=== PATIENT | female | born 1975 | race African-American/Black ===

== ENCOUNTER 2017-09-04 17:33 | Emergency (ER) | payer OTHER ==
[~2017-09-04 17:33] MED LIST: MELO15TA2 PO; METH750T2 PO
[2017-09-04 17:38] VITALS: BP 154/74; PULSE 91; RESP 20; TEMP 98.1; O2SAT 98
[2017-09-04] MEDS ORDERED: LORazepam 0.5 MG TAB PO ONE (18:00)
[2017-09-04] MEDS ORDERED: KETOROLAC TROMETHAMINE 60 MG/2 ML (IM) VIAL IM ONE (18:00)
[2017-09-04] MEDS ORDERED: ORPHENADRINE INJ 60 MG/2 ML AMP IM ONE (18:00)
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
[2017-09-04] MEDS ORDERED: ROBA750T PO (18:24)
[2017-09-04] MEDS ORDERED: IBUP1TAB7 PO (18:24)
== END 2017-09-04 18:50 | disposition home or self-care (01) ==
LOC: NEPK 17:33
DX: S16.1XXA Strain of muscle, fascia and tendon at neck level, initial encounter (principal); G44.209 Tension-type headache, unspecified, not intractable; J45.909 Unspecified asthma, uncomplicated; F41.9 Anxiety disorder, unspecified; F43.0 Acute stress reaction; V49.49XA Driver injured in collision with other motor vehicles in traffic accident, initial encounter; Y99.0 Civilian activity done for income or pay
CPT/HCPCS: 96372; 99284; J1885; J2360

== ENCOUNTER 2017-09-08 12:33 | Emergency (ER) | payer SELFPAY ==
[~2017-09-08 12:33] MED LIST changes: +IBUP1TAB7 PO; -MELO15TA2 PO; -METH750T2 PO; +ROBA750T PO
[2017-09-08 12:34] VITALS: BP 127/90; PULSE 100; RESP 15; TEMP 98.6; O2SAT 99
--- NOTE | 2017-09-08 13:13 | PD ---
HPI Chief Complaint: Musculoskeletal Complaint Time Seen by Provider: 13:08 Travel History International Travel<30 days: No Contact w/Intl Traveler<30days: No Traveled to known affect area: No History of Present Illness HPI 42-year-old female presents emergency Department with complaint of right thigh pain and right calf pain after receiving an injection of a muscle relaxer on September 04. Denies paresthesias, loss of sensation, decreased range of motion, decreased strength to the affected extremity. Denies fever, vomiting. Denies history of PE/DVT. Denies anticoagulant therapy. Denies leg edema. Denies chest pain, shortness of breath. That she's limping on the leg secondary to pain. Has been taking ibuprofen for symptom management. Rates pain 03/10. Describes it as a throbbing sensation. Pain is worse with walking and palpation. No known allergies. Dr. Sullivan is primary care provider. Has no other medical complaints. No other modifying factors or associated signs and symptoms. PFSH Past Medical History Asthma: Yes (CHILDHOOD) Anxiety: Yes Diminished Hearing: No Reproductive: Yes (ENDOMETRIOSIS) Immunizations Current: Yes ?: Not LMP: 09/07/17 : 5 Para: 3 Miscarriage: 2 : 2 Ectopic : Yes Tubal Ligation: Yes Past Surgical History Gynecologic Surgery: Yes (LAPAROSCOPY for endometriosis,uterine ablation on 12/02) Other Surgery: Yes (LigatiandonTubal ) Social History Alcohol Use: No Tobacco Use: No Substance Use: No Allergies-Medications (Allergen,Severity, Reaction): Coded Allergies: No Known Allergies (Verified Adverse Reaction, Unknown, 09/08/17) Reported Meds & Prescriptions Reported Meds & Active Scripts Active Ibuprofen 800 Mg Tab 800 Mg PO Q8H PRN Robaxin (Methocarbamol) 750 Mg Tab 750 Mg PO Q8HR Do not drive while using this medication. Review of Systems Except as stated in HPI: all other systems reviewed are Neg Physical Exam Narrative GENERAL: Well-nourished, well-developed black female patient, in no acute distress SKIN: Warm and dry. HEAD: Atraumatic. Normocephalic. EYES: Pupils equal and round. No scleral icterus. No injection or drainage. ENT: Mucosa pink and moist. Airway patent. NECK: Trachea midline. CARDIOVASCULAR: Regular rate. RESPIRATORY: No accessory muscle use. GASTROINTESTINAL: Flat. MUSCULOSKELETAL: Right lower extremity supple and non-tense with 2+ pedal pulse and sensory intact without erythema or edema. Reproducible tenderness on palpation to the posterior upper calf. Producible tenderness to the right anterior thigh area; however erythema, edema, ecchymosis. No obvious deformities. No clubbing. No cyanosis. No edema. NEUROLOGICAL: Awake and alert. Oriented 3. No obvious cranial nerve deficits. Motor grossly within normal limits. Normal speech. PSYCHIATRIC: Appropriate mood and affect; insight and judgment normal. Data Data Last Documented VS Vital Signs Date Time Temp Pulse Resp B/P (MAP) Pulse Ox O2 Delivery O2 Flow Rate FiO2 09/08/17 12:34 98.6 100 15 127/90 (102) 99 Orders Orders Ibuprofen (Motrin) (09/08/17 13:15) Us Leg Venous Doppler (09/08/17 ) [facility] Medical Decision Making Medical Screen Exam Complete: Yes Emergency Medical Condition: Yes Medical Record Reviewed: Yes Differential Diagnosis Thrombosis, leg pain, injection site pain, medical clearance Narrative Course 42-year-old female with right thigh and calf pain after receiving an injection 4 days ago in her right thigh. Right lower extremity supple and nontender 2+ pedal pulses and sensory intact without erythema or edema. There is tenderness on palpation of the posterior calf. I will order an venous Doppler ultrasound to rule out DVT. 1430: Right leg venous upper ultrasound concluded: Negative for deep venous thrombosis. Discussed ultrasound findings with the patient. Ibuprofen prescribed for home. Instructed patient to follow up with primary care provider. Patient verbalizes understanding and agreement with treatment plan. Patient is medically cleared and stable for discharge. Discussed reasons to return to the emergency department. Patient agrees with treatment plan. The patients vital signs are stable and the patient is stable for outpatient follow- up and treatment. Patient discharged home, stable and in no acute distress. Diagnosis Primary Impression: Right leg pain Additional Impression: Pain at injection site Qualified Codes: T80.89XA - Other complications following infusion, transfusion and therapeutic injection, initial encounter; R52 - Pain, unspecified Referrals: Primary Care Physician Patient Instructions: General Instructions, Leg Pain (ED) Additional Instructions: Tylenol or ibuprofen as directed and as needed for pain and inflammation Ice and/or heat to affected area to reduce pain Avoid aggravating activity; increase activity as tolerated Follow-up with primary care provider Return to the emergency department immediately with worsening of symptoms Med/Other Pt SpecificInfo: Prescription(s) given Scripts Ibuprofen (Ibuprofen) 800 Mg Tab 800 MG PO Q6HR Y for PAIN, #20 TAB 0 Refills Prov: Gris Turner 09/08/17 Disposition: 01 DISCHARGE HOME Condition: Stable Gris Turner Sep 08, 2017 13:13
[2017-09-08] MEDS ORDERED: IBUPROFEN 800 MG TAB PO ONE (13:15)
--- NOTE | 2017-09-08 14:24 | RADRPT ---
EXAM DATE/TIME: 09/08/2017 13:26 [place] COMPARISON: No previous studies available for comparison. INDICATIONS : Right leg pain. MEDICAL HISTORY : Endometriosis. SURGICAL HISTORY : Tubal ligation. Laparoscopy for endometriosis. Uterine ablation. ENCOUNTER: Initial ACUITY: 3 days PAIN SCORE: 4/10 LOCATION: Right leg. TECHNIQUE: Venous ultrasound of the leg was performed from the inguinal ligament to the proximal calf. Real-gomez e, color Doppler and spectral tracing, compression and augmentation techniques were used. FINDINGS: There is normal compressibility of the deep venous system from the inguinal region to the proximal ca lf. No echogenic clot is seen in the lumen of the common femoral, femoral, popliteal, and posterior tibial veins. There is a normal response of the venous system to proximal and distal augmentation an d respiration. CONCLUSION: Negative for deep venous thrombosis. Jhonathan Holley MD FACR on September 08, 2017 at 14:21 Board Certified Radiologist. This report was verified electronically.
[2017-09-08] MEDS ORDERED: IBUP1TAB7 PO (14:30)
== END 2017-09-08 15:10 | disposition home or self-care (01) ==
LOC: NEPK 12:33
DX: M79.604 Pain in right leg (principal); T80.89XA Other complications following infusion, transfusion and therapeutic injection, initial encounter; J45.909 Unspecified asthma, uncomplicated; F41.9 Anxiety disorder, unspecified
CPT/HCPCS: 93971

== ENCOUNTER 2018-10-27 05:54 | Observation (INO) ==
[2018-10-27] MEDS ORDERED: ceFAZolin 2 GM IV; once IV.SIG PRN (06:18)
[2018-10-27] MEDS ORDERED: Chlorhexidine Gluconate 2% 1 Pack (2 Cloths) TOPICAL ONE (06:20)
[2018-10-27] MEDS ORDERED: Metoprolol Tartrate 25 MG Tablet PO ONE (06:20)
[2018-10-27] MEDS ORDERED: Sodium Chlor 0.9% Inj 500 ML IV.SIG SCH (07:00)
[2018-10-27 07:04] LABS: Baso % (Auto) 0.5 % (0.0-2.0); Eos # (Auto) 0.1 th/mm3 (0.0-0.4); Hematocrit 39.6 % (35.0-46.0); Hemoglobin 13.3 gm/dL (11.6-15.3); Lymph # (Auto) 2.1 th/mm3 (1.0-4.8); Mean Corpuscular HGB Conc 33.5 % (32.0-36.0); Mean Corpuscular Hemoglobin 27.6 pg (27.0-34.0); Mean Corpuscular Volume 82.4 fL (80.0-100.0); Mean Platelet Volume 8.1 fL (7.0-11.0); Mono # (Auto) 0.5 th/mm3 (0.0-0.9); Mono % (Auto) 10.7 % (0.0-8.0); Neut # (Auto) 2.3 th/mm3 (1.8-7.7); Neut % (Auto) 44.8 % (16.0-70.0); Platelet Count 238 th/mm3 (150-450); Red Cell Distribution Width 14.4 % (11.6-17.2); White Blood Count 5.1 th/mm3 (4.0-11.0)
[2018-10-27] MEDS ORDERED: Lidocaine 1%/Epinephrine 1:100,000 Inj 50 ML Vial ONE (07:25)
[2018-10-27] MEDS ORDERED: Ketorolac Inj 30 MG/ML (IVP) Vial IV.PUSH ONE (08:04)
[2018-10-27] MEDS ORDERED: Phenylephrine/NS 1000 MCG/10ML Syringe IV.PUSH ONE (08:04)
[2018-10-27] MEDS ORDERED: Lidocaine PF 1% Inj 5 ML Syringe OTHER ONE (08:04)
[2018-10-27] MEDS ORDERED: Glycopyrrolate Inj 1 MG/5 ML Syringe IV.PUSH ONE (08:04)
[2018-10-27] MEDS ORDERED: Neostigmine Inj 5 MG/5 ML Syringe IV.PUSH ONE (08:04)
[2018-10-27] MEDS ORDERED: fentaNYL Citrate Inj 100 MCG/2 ML Ampul ONE (09:51)
[2018-10-27] MEDS ORDERED: HYDROmorphone PF Inj 1 MG/ML Ampul IV.PUSH PRN (10:18)
--- NOTE | 2018-10-27 10:18 | P.OP ---
- Preoperative Diagnosis (1) Excessive menses - Postoperative Diagnosis (1) Excessive menses Date of procedure: 10/27/18 Procedure: LASH bilateral salpingectomy Anesthesia: GETA Surgeon: Brian Sebastian MD Automatic Cigar Wrapper Tender: Destiny Barreto Estimated blood loss (mL): 100 Pathology: other (uterus and tubes)
[2018-10-27] MEDS ORDERED: *morphine SULFATE 4 MG/ML PERIprocedure ONLY ONE (10:32)
--- NOTE | 2018-10-27 10:43 | MP ---
cc: Brian Sebastian MD DATE OF OPERATION: 10/27/2018 PROCEDURE: Laparoscopic supracervical hysterectomy with bilateral salpingectomy. PREOPERATIVE DIAGNOSIS: Excessive menses. POSTOPERATIVE DIAGNOSIS: Excessive menses. SURGEON: Brian Sebastian MD. ESTIMATED BLOOD LOSS: 100 mL. PAIRER ODDS: Destiny Honeycutt APRN. COMPLICATIONS: None. FINDINGS: A slightly enlarged boggy uterus, normal fallopian tubes and ovaries bilaterally. No ovarian cysts seen. PROCEDURE IN DETAIL: After informed consent, the patient was taken to the operating room where she was placed under general anesthesia, was placed in supine position, legs in the Yellofin stirrups and perineum and vagina were prepped and draped in normal sterile fashion. After a timeout was taken, a Crockett was placed to gravity and a speculum was placed in the vagina. The cervix was grasped with a single-tooth tenaculum and acorn uterine manipulator was placed in the cervix. Gloves were changed. A 5 mm infraumbilical incision was made through an old scar. We entered the abdomen under direct visualization. Upper and lower abdomen revealed no abnormalities. Uterus was slightly enlarged and boggy. Fallopian tubes were lifted off the ovaries, which were normal. We came underneath the mesosalpinx and removed the fallopian tubes bilaterally. Good vascularity to the ovaries remained. At this point, used the Harmonic scalpel. We came across the round ligament and the uteroovarian ligament, releasing the ovary to the pelvic sidewall. We continued down until a bladder flap was created and then the uterine arteries were taken both sides. We dissected down the cervical branch of the uterine arteries, avoiding injury to the bladder and came across the cervical stump. The acorn uterine manipulator was encountered as we came across the cervix, there was no remaining endometrium. At this point, good hemostasis had been achieved at all pedicles. The uterus was now free in the abdomen. Both fallopian tubes had been removed through the trocar sites. A small incision was made suprapubically just large enough to remove the uterus. The fascia was opened. We entered the peritoneum and the uterus was removed intact. The peritoneum was then closed, the fascia was closed and the skin was closed with subcuticular stitch. The abdomen was reinsufflated. There was no bleeding. All blood and clots were removed from the abdomen. All instruments were removed. The 5 mm trocars, infraumbilical and left and right lower quadrants, were closed with simple stitch. The patient tolerated the procedure well. She was taken to recovery room in stable condition. Lap and instrument counts were correct. MD ADILENE Isaac/elizabeth , 10:23 AM , 10:31 AM
[2018-10-27] MEDS: Ketorolac Inj 30 MG/ML (IVP) Vial IV.PUSH PRN ×2 (12:18→22:30)
[2018-10-28 03:50] VITALS: PULSE 70
[2018-10-28 08:23] VITALS: BP 115/66; RESP 16; TEMP 98.9; O2SAT 95
--- NOTE | 2018-10-28 09:00 | P.PNOB ---
Subjective Post op day: 1 Interval history: doing well, voiding , passing gas and ambulating. Pain controlled with percocet Objective Vital Signs/I&O: Vital Signs 10/27/18 09:45 10/27/18 10:00 10/27/18 10:15 Temperature 97.4 F L Pulse Rate 74 73 67 Respiratory Rate 15 17 15 Blood Pressure 109/57 L 106/60 100/59 L Pulse Oximetry 98 100 100 10/27/18 10:30 10/27/18 10:45 10/27/18 13:16 Temperature 97.3 F L 97.8 F Pulse Rate 74 68 87 Respiratory Rate 16 17 16 Blood Pressure 99/54 L 111/63 121/74 Pulse Oximetry 100 97 95 10/27/18 19:46 10/27/18 23:55 10/28/18 03:49 Temperature 98.6 F 98.4 F 98.1 F Pulse Rate 89 87 70 Respiratory Rate 18 18 18 Blood Pressure 116/65 118/64 106/62 Pulse Oximetry 95 96 97 10/28/18 08:00 Temperature 98.9 F Pulse Rate 70 Respiratory Rate 16 Blood Pressure 115/66 Pulse Oximetry 95 Intake & Output 10/27/18 10/28/18 10/28/18 18:59 06:59 18:59 Intake Total 1450 / 1450 Output Total 1700 / 1700 Balance -250 / -250 Intake: IV 1050 / 1050 LR 1000 mL Inj 1,000 ML @ 30 1000 / 1000 mls/hr IV.SIG .Q24H [facility] Rx#: [id number] Ancef 2 GM Premix Inj 2 gm In 50 / 50 50 ml @ 100 mls/hr IV.SIG UNDERGROUND TRUCK OPERATOR PRN Rx#:[id number] Anesthesia Amount 400 / 400 Output: Urine 1500 / 1500 Estimated Blood Loss 100 / 100 Urine Amount (Catheter) 100 / 100 Indwelling Urethral Catheter 100 / 100 Result Diagrams: 10/27/18 06:45 Objective Remarks: GENERAL: Well-nourished, well-developed patient. ABDOMEN/GI: Abdomen soft, non-tender, bowel sounds present. Incision: Clean, dry and intact. Fundus: Firm, non-tender at umbilicus. GENITOURINARY: Light to moderate bleeding. EXTREMITIES: No cyanosis or edema, non-tender, without signs of DVT. Medications and IVs: Active Medications Hydromorphone HCl (Dilaudid Pf Inj) 1 mg IV.PUSH Q4H PRN PRN Reason: BREAKTHROUGH PAIN Last Admin: 10/27/18 17:26 Dose: 1 mg Sodium Chloride (Ns Inj) 500 mls @ 30 mls/hr IV.SIG .Q10H KADIE Last Admin: 10/27/18 06:55 Dose: Not Given Ketorolac Tromethamine (Toradol Inj) 30 mg IV.PUSH Q6H PRN PRN Reason: ABDOMINAL CRAMPING Stop: 11/01/18 10:17 Last Admin: 10/27/18 22:30 Dose: 30 mg Miscellaneous Information ([facility] Nursing Information) 1 each OTHER UNSCH PRN PRN Reason: SEE LABEL COMMENTS Stop: 10/28/18 09:46 Ondansetron HCl (Zofran Inj) 4 mg IV.PUSH Q6H PRN PRN Reason: NAUSEA OR VOMITING Oxycodone/Acetaminophen (Percocet 5/325 Mg) 1 tab PO Q4H PRN PRN Reason: PAIN SCALE 1 TO 5 Last Admin: 10/28/18 08:13 Dose: 1 tab Oxycodone/Acetaminophen (Percocet 5/325 Mg) 2 tab PO Q4H PRN PRN Reason: PAIN SCALE 6 TO 10 Sodium Chloride (Ns Flush) 2 ml IV.FLUSH PRN PRN PRN Reason: FLUSH AFTER USING IV ACCESS Last Admin: 10/27/18 22:31 Dose: 2 ml Sodium Chloride (Ns Flush) 2 ml IV.FLUSH BID KADIE Last Admin: 10/27/18 22:31 Dose: Not Given Assessment and Plan - Diagnosis (1) Excessive menses Code(s): N92.0 - Excessive and frequent menstruation with regular cycle Status : Acute - Plan de home
--- NOTE | 2018-10-28 09:05 | P.DS ---
Date of admission: 10/27/18 12:11 Primary care physician: No Primary Care Physician Brief History from admission: 43 yo for DUSTIN doing well DS: Diagnosis - Discharge Diagnosis (1) Excessive menses Status: Acute DS: Medications - Discharge Medications Prescriptions: oxycodone-acetaminophen 2 tab PO Q4H PRN 3 Days #24 tab PRN Reason: Pain Scale 6 To 10 DS: Summary Hospital Course: Patient came for HYST and had no problems and DC home POD #1 - Time Spent with Patient Total time spent providing and/or coordinating discharge services: Less than 30 minutes - Quality: VTE Deep Vein Thrombosis/Pulmonary Embolism Present on Admission: No Exam Vital signs: Vital Signs 10/27/18 09:45 10/27/18 10:00 10/27/18 10:15 Temperature 97.4 F L Pulse Rate 74 73 67 Respiratory Rate 15 17 15 Blood Pressure 109/57 L 106/60 100/59 L Pulse Oximetry 98 100 100 10/27/18 10:30 10/27/18 10:45 10/27/18 13:16 Temperature 97.3 F L 97.8 F Pulse Rate 74 68 87 Respiratory Rate 16 17 16 Blood Pressure 99/54 L 111/63 121/74 Pulse Oximetry 100 97 95 10/27/18 19:46 10/27/18 23:55 10/28/18 03:49 Temperature 98.6 F 98.4 F 98.1 F Pulse Rate 89 87 70 Respiratory Rate 18 18 18 Blood Pressure 116/65 118/64 106/62 Pulse Oximetry 95 96 97 10/28/18 08:00 Temperature 98.9 F Pulse Rate 70 Respiratory Rate 16 Blood Pressure 115/66 Pulse Oximetry 95 Intake & Output 10/27/18 10/28/18 10/28/18 18:59 06:59 18:59 Intake Total 1450 / 1450 Output Total 1700 / 1700 Balance -250 / -250 Intake: IV 1050 / 1050 LR 1000 mL Inj 1,000 ML @ 30 1000 / 1000 mls/hr IV.SIG .Q24H [facility] Rx#: [id number] Ancef 2 GM Premix Inj 2 gm In 50 / 50 50 ml @ 100 mls/hr IV.SIG DIFFUSION OPERATOR PRN Rx#:[id number] Anesthesia Amount 400 / 400 Output: Urine 1500 / 1500 Estimated Blood Loss 100 / 100 Urine Amount (Catheter) 100 / 100 Indwelling Urethral Catheter 100 / 100 - Constitutional no acute distress Results Procedures completed during hospitalization: LASH bilateral salpingectomy Pending studies at discharge: Pending at discharge 10/27/18 12:10 Surgical [PTH] Routine Discharge Plan - Discharge Disposition Patient Disposition: 01 Discharge Home - Discharge Order Discharge Orders: Discharge Order (Routine); Ordered 10/28/18 Ordered By: Brian Sebastian - Physicians Team Primary Care Provider: Primary Care Ramonita Mcknight Attending Provider: Brian Sebastian - Rxs /Orders / Referrals /Forms Prescriptions: New oxycodone-acetaminophen 5-325 mg Tablet 2 tab PO Q4H PRN (Reason: Pain Scale 6 To 10) 3 Days Qty: 24 RF: 0 Discontinued cyanocobalamin (vitamin B-12) [Vitamin B-12] 1,000 mcg Tablet 1,000 mcg PO DAILY soy isofla-blk cohosh-mag bark [Estroven] 155 mg Capsule 1 tab PO DAILY Referrals: Brian Sebastian MD [Physician] - See Instructions (2 week follow up) Primary Care Ramonita Mcknight [Primary Care Provider] - See Instructions - Post Discharge Care Plan Care Plan Goals: We want you to have a wonderful recovery! Please Report the Following Symptoms to Your Doctor: -Temperature above 100.5 degrees -Redness of incision or excessive or foul smelling drainage -Unusual pain or calf pain -Increased vaginal bleeding -Painful or difficulty urinating Goals to Promote Your Health * To prevent worsening of your condition and complications * To maintain your health at the optimal level Directions to Meet Your Goals Take your medications as prescribed Follow your dietary instruction Follow activity as directed Ensure plenty of rest for recovery Drink fluids for hydration Keep your appointments as scheduled Take your immunizations and boosters as scheduled If your symptoms worsen call your MANAGER PERSONNEL SELECTION Physician, or go to an Urgent Care Center or Emergency Room Smoking is Dangerous to your health. Avoid second hand smoke Call the 24-hour crisis hotline for domestic abuse at
== END 2018-10-28 10:24 | disposition home or self-care (01) ==
LOC: HSDI 05:54 → HSDC 05:54 → H1EA 12:26
PROVIDERS: ADMIT Obstetrics & Gynecology; ATTEND Obstetrics & Gynecology
PROC: LAPLASH (ICD-10-PCS; 2018-10-27 08:04)
DX: D25.9 Leiomyoma of uterus, unspecified; Z87.42 Personal history of other diseases of the female genital tract; N83.8 Other noninflammatory disorders of ovary, fallopian tube and broad ligament; N80.0 Endometriosis of uterus; D64.9 Anemia, unspecified; N70.11 Chronic salpingitis; N94.6 Dysmenorrhea, unspecified; N92.0 Excessive and frequent menstruation with regular cycle
CPT/HCPCS: 84702; 85025; 86850; 86900; 86901; 88307; 96374; 96375; 96376; G0378; J0131; J0690; J1100; J1170; J1885; J2250; J2270; J2370; J2405; J2710; J3010; J7120